=== PATIENT | male | born 1985 | race Caucasian/White ===

== ENCOUNTER 2021-05-03 00:25 | Emergency (ER) | payer MEDICAID ==
[~2021-05-03] VITALS: Ht 190.5 cm; Wt 81.7 kg
[2021-05-03] MEDS ORDERED: DESYREL150 MG PO (01:02)
[2021-05-03] MEDS ORDERED: SUBOXONE 8 MG-1 EAC3 SUBLING (01:02)
[2021-05-03 01:03] LABS: URINE BILIRUBIN NEGATIVE (Negative); URINE BLOOD NEGATIVE (Negative); URINE CLARITY CLEAR; URINE COLOR YELLOW; URINE GLUCOSE-RANDOM NEGATIVE (Negative); URINE KETONES NEGATIVE (Negative); URINE LEUKOCYTES NEGATIVE (Negative); URINE NITRITE NEGATIVE (Negative); URINE PROTEIN NEGATIVE (Negative); URINE UROBILINOGEN 0.2 E.U./dl (0.2-1.0)
[2021-05-03 01:09] LABS: HEMATOCRIT 48.3 % (42.0-52.0); HEMOGLOBIN 16.1 gm/dL (14.0-18.0); MCH 29.9 pg (26.0-34.0); MCHC 33.3 g/dL (28.0-37.0); MCV 89.9 fL (80.0-100.0); MPV 9.4 fl. (7.2-11.1); RBC 5.38 mil/uL (4.50-6.00); RDW-CV 13.1 % (10.5-14.5); WBC 12.4 thou/uL (4.0-11.0)
[2021-05-03 01:12] LABS: AMP/METHAMP Negative (Negative); BARBITURATES Negative (Negative); BENZODIAZEPINES Negative (Negative); COCAINE Negative (Negative); METHADONE Negative (Negative); OPIATES Negative (Negative); PCP Negative (Negative); THC POSITIVE (Negative)
[2021-05-03 01:20] LABS: CALCIUM 9.7 mg/dL (8.5-10.1); CREATININE 1.3 mg/dL (0.6-1.3); POTASSIUM 3.6 mmol/L (3.5-5.1)
[2021-05-03 01:25] LABS: ALBUMIN 4.7 g/dL (3.4-5.0); TOTAL BILIRUBIN 0.7 mg/dL (<0.1-1.0); TOTAL PROTEIN 7.9 g/dL (6.4-8.2)
[2021-05-03 01:33] LABS: ALCOHOL < 10 mg/dL (<10); SALICYLATE 6.4 mg/dL (2.8-20.0)
[2021-05-03 01:34] LABS: ACETAMINOPHEN < 2 ug/mL (10-30)
[2021-05-03 10:53] VITALS: BP 117/70
== END 2021-05-03 10:53 | disposition home or self-care (01) ==
LOC: M.ERS 00:25
PROVIDERS: Personal Emergency Response Attendant
DX: F22 Delusional disorders (principal); Z20.822 Contact with and (suspected) exposure to COVID-19; F19.10 Other psychoactive substance abuse, uncomplicated; Z00.8 Encounter for other general examination; Z79.899 Other long term (current) drug therapy